=== PATIENT | male | born 1960 | race Hispanic/Latino ===

== ENCOUNTER 2018-03-25 10:56 | Emergency (ER) | payer MEDICAID ==
[2018-03-25 10:56] VITALS: BMI 34.3
[2018-03-25 11:42] VITALS: RESP 18; TEMP 98.1
[2018-03-25] MEDS ORDERED: Oxycodone/Acetaminophen 5/325 mg Tab PO STA (11:42)
--- NOTE | 2018-03-25 11:46 | ED PDOC ---
Arrival/HPI - General Chief Complaint: Lower Extremity Problem/Injury Time Seen by Provider: 03/25/18 11:27 Historian: Patient - History of Present Illness Narrative History of Present Illness (Text): 03/25/18 11:50 A 57 year old male, whose past medical history includes hypertension, diabetes type 2, orthoscopic surgery to the right knee, anxiety, and depression, presents to the emergency department complaining of right knee pain and swelling. Patient reports earlier today, when he sat in a chair and bent his knee for sitting position, he suddenly experienced severe pain "shooting up throughout body." Also, he mentions there have been various times both knees have given out, however right knee is worse than left knee. Patient denies chest pain, shortness of breath, or any other complaints at this time. At this time here in the Emergency room, patient states pain is currently 5/10 when not bended. Has difficulty bending right knee at this time. Patient requests to have CT of both knees. PMD: Dr. Dutch Abdi Past Medical History - Provider Review Nursing Documentation Reviewed: Yes - Infectious Disease Hx of Infectious Diseases: None - Cardiac Hx Hypertension: Yes - Endocrine/Metabolic Hx Diabetes Mellitus Type 2: Yes - Psychiatric Hx Anxiety: Yes Hx Depression: Yes Hx Substance Use: No - Surgical History Hx Orthopedic Surgery: Yes (RIGHT KNEE SX) - Anesthesia Hx Anesthesia: No - Suicidal Assessment Feels Threatened In Home Enviroment: No Family/Social History - Physician Review Nursing Documentation Reviewed: Yes Family/Social History: No Known Family HX Smoking Status: Current Some Days Smoker Hx Alcohol Use: No Hx Substance Use: No Hx Substance Use Treatment: No Allergies/Home Meds Allergies/Adverse Reactions: Allergies No Known Allergies Allergy (Verified 05/31/16 17:36) Home Medications: Home Meds Medication Instructions Recorded Confirmed Benztropine Mesylate [Cogentin] 1 tab PO DAILY 01/01/13 11/02/13 Depakote 1 tab PO DAILY 01/01/13 11/02/13 Risperidone [Risperdal] 1 tab PO DAILY 01/01/13 11/02/13 Review of Systems - Physician Review All systems were reviewed & negative as marked: Yes - Review of Systems Respiratory: absent: SOB Cardiovascular: absent: Chest Pain Musculoskeletal: Other (right knee pain and swelling; mentions experiencing issues with left knee as well.) Physical Exam Vital Signs Reviewed: Yes Vital Signs Temp Pulse Resp BP Pulse Ox 03/25/18 12:39 85 18 128/85 98 03/25/18 11:28 98.1 F 88 18 155/99 H 98 Temperature: Afebrile Blood Pressure: Normal Pulse: Regular Respiratory Rate: Normal Appearance: Positive for: Well-Appearing, Non-Toxic, Comfortable Pain Distress: None Mental Status: Positive for: Alert and Oriented X 3 - Systems Exam Head: Present: Atraumatic, Normocephalic Pupils: Present: PERRL Extroacular Muscles: Present: EOMI Conjunctiva: Present: Normal Neck: Present: Normal Range of Motion Respiratory/Chest: Present: Clear to Auscultation, Good Air Exchange. No: Respiratory Distress, Accessory Muscle Use Cardiovascular: Present: Regular Rate and Rhythm, Normal S1, S2. No: Murmurs Abdomen: No: Tenderness, Distention, Peritoneal Signs Back: Present: Normal Inspection Upper Extremity: Present: Normal Inspection. No: Cyanosis, Edema Lower Extremity: Present: NORMAL PULSES, Swelling (right knee swelling more than left knee). No: Normal ROM (limited ROM to right knee due to pain and swelling.) Neurological: Present: GCS=15, CN II-XII Intact, Speech Normal Skin: Present: Warm, Dry, Normal Color. No: Rashes Psychiatric: Present: Alert, Oriented x 3, Normal Insight, Normal Concentration Medical Decision Making ED Course and Treatment: 03/25/18 11:54 Impression: 57 year old male with right knee pain and swelling. Plan: -- Bilateral Knee CT -- Percocet -- Reassess and disposition Progress Notes: 03/25/2018 12:[address] FINDINGS: The left knee is unremarkable. Degenerative changes are seen in the right knee. Osteophytes are seen arising from the patellofemoral joint. There are also osteophytes and joint space narrowing in the medial and lateral compartment. . There is meniscal calcification in the lateral compartment. The meniscus is not visible in the medial compartment and is presumably atrophic. There is metallic hardware in the anterior aspect of the proximal tibia. Multiple small bony fragments are seen anterior to the lateral tibial plateau and tibial spine IMPRESSION: Severe degenerative changes in the right knee. Dictator: Von Mckay MD - RAD Interpretation Radiology Orders: 03/25/18 11:42 KNEE W/O CONTRAST BILATERAL [CT] Stat - Medication Orders Current Medication Orders: Discontinued Medications Oxycodone/Acetaminophen (Percocet 5/325 Mg Tab) 1 tab PO STAT STA Stop: 03/25/18 11:43 Last Admin: 03/25/18 11:50 Dose: 1 tab MAR Pain Assessment Document 03/25/18 11:50 GMD (Rec: 03/25/18 11:51 GMD [id number]) Pain Reassessment Is this a pain reassessment? No Presence of Pain Presence of Pain Yes Pain Scale Used Pain Scale Used Numeric Location Left, Right or Bilateral Right Pain Location Body Site Knee Description Intensity of Pain at present 5 - Scribe Statement The provider has reviewed the documentation as recorded by the Scribe [place] Provider Scribe Provider Scribe Attestation: All medical record entries made by the Scribe were at my direction and personally dictated by me. I have reviewed the chart and agree that the record accurately reflects my personal performance of the history, physical exam, medical decision making, and the department course for this patient. I have also personally directed, reviewed, and agree with the discharge instructions and disposition. Disposition/Present on Arrival - Present on Arrival Any Indicators Present on Arrival: No History of DVT/PE: No History of Uncontrolled Diabetes: No Urinary Catheter: No History of Decub. Ulcer: No History Surgical Site Infection Following: None - Disposition Have Diagnosis and Disposition been Completed?: Yes Diagnosis: Knee pain Disposition: HOME/ ROUTINE Disposition Time: 13:44 Patient Plan: Discharge Patient Problems: Current Active Problems Problem Status Onset Knee pain Acute Condition: IMPROVED Discharge Instructions (ExitCare): Chronic Knee Pain (DC), Knee Pain (DC) Prescriptions: oxyCODONE/Acetaminophen [Percocet 5/325 mg Tab] 1 ea PO PRN PRN #6 tab PRN Reason: Pain, Severe (8-10) Referrals: Dutch Abdi Jr., MD [Primary Care Provider] - Follow up with primary Yoni Posey MD [Staff Provider] - Follow up with primary Forms: [employer] ([place]), WORK NOTE
--- NOTE | 2018-03-25 13:00 | CT ---
Date of service: 03/25/2018 PROCEDURE: CT of both knees without contrast HISTORY: pain w/ extension of knee COMPARISON: TECHNIQUE: Radiation dose: Total exam DLP = 438 mGy-cm. This CT exam was performed using one or more of the following dose reduction techniques: Automated exposure control, adjustment of the mA and/or kV according to patient size, and/or use of iterative reconstruction technique. FINDINGS: The left knee is unremarkable. Degenerative changes are seen in the right knee. Osteophytes are seen arising from the patellofemoral joint. There are also osteophytes and joint space narrowing in the medial and lateral compartment. . There is meniscal calcification in the lateral compartment. The meniscus is not visible in the medial compartment and is presumably atrophic. There is metallic hardware in the anterior aspect of the proximal tibia. Multiple small bony fragments are seen anterior to the lateral tibial plateau and tibial spine IMPRESSION: Severe degenerative changes in the right knee. See comments
[2018-03-25 14:02] VITALS: BP 130/84; PULSE 74; O2SAT 97
== END 2018-03-25 14:01 | disposition home or self-care (01) ==
LOC: ED 10:56
DX: M25.561 Pain in right knee (principal); I10 Essential (primary) hypertension; E11.9 Type 2 diabetes mellitus without complications